=== PATIENT | female | born 2000 | race Caucasian/White ===

== ENCOUNTER 2024-08-13 03:44 | Emergency (ER) | payer SELFPAY ==
[~2024-08-13] VITALS: Ht 165.1 cm; Wt 75.0 kg
[2024-08-13 03:48] VITALS: BP 113/63; PULSE 91; RESP 20; TEMP 98.7; O2SAT 99
[2024-08-13] MEDS: ACETAMINOPHEN 325MG TABLET PO ONE (04:12)
== END 2024-08-13 04:37 | disposition home or self-care (01) ==
LOC: ER 03:44
DX: S90.821A Blister (nonthermal), right foot, initial encounter (principal); S90.822A Blister (nonthermal), left foot, initial encounter; F20.9 Schizophrenia, unspecified; X58.XXXA Exposure to other specified factors, initial encounter; Y93.89 Activity, other specified; Y92.89 Other specified places as the place of occurrence of the external cause; Y99.8 Other external cause status
CPT/HCPCS: 99283

== ENCOUNTER 2024-08-13 07:52 | Emergency (ER) | payer SELFPAY ==
[~2024-08-13] VITALS: Ht 162.6 cm; Wt 85.0 kg
[2024-08-13 07:56] VITALS: O2SAT 100
[2024-08-13 08:43] LABS: BASOPHILS % 0.3 % (0.0-2.0); EOSINOPHILS % 1.1 % (0.0-5.0); HEMATOCRIT. 38.8 % (36.0-48.0); HEMOGLOBIN. 12.7 g/dL (12.0-16.0); LYMPHOCYTES % 21.3 % (20.0-50.0); MEAN CORPUSCULAR HGB CONC 32.7 g/dL (31.0-37.0); MEAN CORPUSCULAR VOLUME 85.8 fL (81.0-99.0); MEAN PLATELET VOLUME 9.5 fl (7.4-10.4); MONOCYTES % 9.7 % (2.0-8.0); NEUTROPHILS % 67.6 % (40.0-76.0); PLATELET 289 x1000/uL (130-400); RED BLOOD CELL COUNT 4.53 mill/uL (4.2-5.4); RED CELL DISTRIBUTION WIDTH 15.8 % (11.6-14.6); WHITE BLOOD COUNT 8.4 x1000/uL (4.5-11.0)
[2024-08-13 08:50] LABS: CHLORIDE 107 mEq/L (98-107); POTASSIUM 3.8 mEq/L (3.5-5.1); SODIUM 140 mEq/L (136-145)
[2024-08-13 08:51] LABS: CALCIUM 9.7 mg/dL (8.7-10.4); CARBON DIOXIDE 25 mEq/L (21-32)
[2024-08-13 08:52] LABS: HCG SCREEN NEGATIVE
[2024-08-13 08:56] LABS: CREATININE 0.9 mg/dL (0.6-1.0); GLUCOSE 98 mg/dL (70-105); UREA NITROGEN BLOOD 15 mg/dL (9-23)
[2024-08-13 08:58] LABS: ACETAMINOPHEN 8 ug/mL (10-30)
[2024-08-13 09:00] LABS: ETHANOL BLOOD < 10 mg/dL (<10)
[2024-08-13 15:51] LABS: CLARITY URINE CLEAR (CLEAR); COLOR URINE DARK YELLOW (YELLOW); GLUCOSE URINE NEGATIVE (NEGATIVE); KETONES URINE 2+ (NEGATIVE); LEUKOCYTE ESTERASE URINE TRACE (NEGATIVE); NITRITE URINE NEGATIVE (NEGATIVE); OCCULT BLOOD URINE TRACE (NEGATIVE); PROTEIN URINE TRACE (NEGATIVE); SPECIFIC GRAVITY URINE 1.038 (1.005-1.030)
[2024-08-13 16:14] LABS: MUCUS URINE 3+ /lpf (< = 2+); RBC URINE 0-2 /hpf (0-2); SQUAMOUS EPITHELIAL CELL URINE 1+ /lpf (RARE/1+); WBC URINE 0-2 /hpf (0-2)
[2024-08-13 16:15] LABS: BACTERIA URINE 3+
[2024-08-13 16:21] LABS: *AMPHETAMINES SCREEN URINE NEGATIVE (NEGATIVE); *BARBITURATES SCREEN URINE NEGATIVE (NEGATIVE); *BENZODIAZEPINES SCREEN URINE NEGATIVE (NEGATIVE); *COCAINE SCREEN URINE NEGATIVE (NEGATIVE); METHADONE URINE SCREEN NEGATIVE (NEGATIVE); OPIATES URINE SCREEN NEGATIVE (NEGATIVE); PHENCYCLIDINE URINE SCREEN NEGATIVE (NEGATIVE)
[2024-08-13 16:22] LABS: CANNABINOID URINE SCREEN NEGATIVE (NEGATIVE); ECSTASY MDMA SCREEN URINE NEGATIVE (NEGATIVE)
[2024-08-13] MEDS ORDERED: DIPHENHYDRAMINE 25MG CAPSULE PO SCH (22:00)
[2024-08-14] MEDS: OLANZAPINE 5MG TABLET ODT PO ONE (21:06)
[2024-08-16 12:18] VITALS: BP 111/62; PULSE 73; RESP 14; TEMP 36.72516; O2SAT 99
== END 2024-08-16 13:17 | disposition home or self-care (01) ==
LOC: ER 08:47
DX: R41.82 Altered mental status, unspecified (principal); Z98.890 Other specified postprocedural states; Z20.822 Contact with and (suspected) exposure to COVID-19
CPT/HCPCS: 80305; 80048; 81003; 80307; 80329; 80320; 84703; 85025; 36415; 70450; 99285; 87426; Q0163; Z7610 ×2; G0480

== ENCOUNTER 2024-09-23 22:03 | Emergency (ER) | payer MEDICAID ==
[~2024-09-23] VITALS: Ht 167.6 cm; Wt 68.0 kg
[2024-09-23 22:05] VITALS: O2SAT 98
[2024-09-23 23:05] LABS: BASOPHILS % 0.3 % (0.0-2.0); EOSINOPHILS % 1.8 % (0.0-5.0); HEMATOCRIT. 36.7 % (36.0-48.0); HEMOGLOBIN. 11.9 g/dL (12.0-16.0); LYMPHOCYTES % 39.1 % (20.0-50.0); MEAN CORPUSCULAR HEMOGLOBIN 27.7 pg (28.0-32.0); MEAN CORPUSCULAR HGB CONC 32.4 g/dL (31.0-37.0); MEAN CORPUSCULAR VOLUME 85.4 fL (81.0-99.0); MEAN PLATELET VOLUME 9.4 fl (7.4-10.4); NEUTROPHILS % 51.8 % (40.0-76.0); PLATELET 295 x1000/uL (130-400); RED CELL DISTRIBUTION WIDTH 15.1 % (11.6-14.6); WHITE BLOOD COUNT 8.8 x1000/uL (4.5-11.0)
[2024-09-23 23:07] LABS: POTASSIUM 3.7 mEq/L (3.5-5.1)
[2024-09-23 23:08] LABS: CALCIUM 9.1 mg/dL (8.7-10.4)
[2024-09-23 23:13] LABS: CREATININE 1.2 mg/dL (0.6-1.0)
[2024-09-23] MEDS: KETOROLAC 15MG/ML VIAL IM ONE (23:15)
[2024-09-23 23:44] LABS: CLARITY URINE CLEAR (CLEAR); COLOR URINE YELLOW (YELLOW); GLUCOSE URINE NEGATIVE (NEGATIVE); KETONES URINE NEGATIVE (NEGATIVE); LEUKOCYTE ESTERASE URINE TRACE (NEGATIVE); NITRITE URINE POSITIVE (NEGATIVE); OCCULT BLOOD URINE TRACE (NEGATIVE); PROTEIN URINE NEGATIVE (NEGATIVE); SPECIFIC GRAVITY URINE 1.022 (1.005-1.030)
[2024-09-24 00:50] LABS: SQUAMOUS EPITHELIAL CELL URINE 2+ /lpf (RARE/1+)
[2024-09-24 00:52] LABS: BACTERIA URINE 2+
[2024-09-24 00:55] LABS: RBC URINE 0-2 /hpf (0-2)
[2024-09-24] MEDS ORDERED: CEPH500C2 MT (00:55)
[2024-09-24 01:00] VITALS: BP 118/65; PULSE 76; RESP 16; TEMP 36.89184; O2SAT 100
== END 2024-09-24 01:00 | disposition home or self-care (01) ==
LOC: ER 22:03
DX: N39.0 Urinary tract infection, site not specified (principal)
CPT/HCPCS: 99285; 74176; 80048; 81003; 81025; 83690; 85025; 87086; 87186; 87077; 36415; 96372; J1885